=== PATIENT | male | born 1940 | race Caucasian/White ===

== ENCOUNTER 2017-03-15 01:48 | Emergency (ER) | payer OTHER, MEDICARE ==
[2017-03-15] MEDS ORDERED: Aspirin Low Dose CHEW TAB* 81 MG PO ONE (02:28)
[2017-03-15 02:45] LABS: ABS Basophils 0 10^3/ul (0-0.2); ABS Eosinophils 0.2 10^3/ul (0-0.6); ABS Lymphocytes 1.5 10^3/ul (1.0-4.8); ABS Monocytes 0.4 10^3/ul (0-0.8); ABS Neutrophils 2.1 10^3/ul (1.5-7.7); ABS Nucleated RBC 0.01 10^3/ul; Eosinophil % 3.8 % (0-6); Hematocrit 41 % (42-52); Hemoglobin 14.1 g/dl (14.0-18.0); Lymphocyte % 35.7 % (25-47); Mean Corpuscular HGB Conc 34 g/dl (31-36); Mean Corpuscular Hemoglobin 32 pg (27-31); Mean Corpuscular Volume 95 fL (80-94); Mean Platelet Volume 8 um3 (7.4-10.4); Nucleated Red Blood Cells % 0.2; Platelet Count 120 10^3/ul (150-450); Red Blood Count 4.37 10^6/ul (4.0-5.4); Red Cell Distribution Width 13 % (10.5-15); White Blood Count 4.3 10^3/ul (3.5-10.8)
[2017-03-15 02:56] LABS: EGFR Non-African American 72.5 (>60)
[2017-03-15 02:58] LABS: INR 0.86 (0.77-1.02)
--- NOTE | 2017-03-15 07:58 | RAD ---
HISTORY: Chest pain COMPARISONS: March 22, 2015 VIEWS: 1: frontal portable view of the chest at 2:41 AM. The left costophrenic angle is partially cut off. FINDINGS: LINES AND TUBES: A left-sided pacemaker is noted. CARDIOMEDIASTINAL SILHOUETTE: The cardiomediastinal silhouette is normal for portable technique. PLEURA: The costophrenic angles are sharp. No pleural abnormalities are noted. LUNG PARENCHYMA: There is minimal linear opacification of left lung base. ABDOMEN: The upper abdomen is clear. There is no subphrenic gas. BONES AND SOFT TISSUES: The patient is status post median sternotomy. IMPRESSION: MINIMAL LINEAR ATELECTASIS OF THE LEFT LUNG BASE.
[2017-03-15 09:35] VITALS: BP 154/77
--- NOTE | 2017-03-15 12:02 | PN ---
PROGRESS NOTE: DATE OF VISIT: 03/15/17 CHIEF COMPLAINT: Chest pain. HISTORY OF PRESENT ILLNESS: I was asked to evaluate Mr. Chao, who is a 76- year- old male, with history of coronary artery disease, for chest pain. I was asked by the ED physician to admit the patient for overnight observation with a stress test. When I approached the patient and started talking about his history , he said that he is not willing to stay in this hospital as all of his cardiac care is at [facility] and that is where he wishes to go. At this point, I suggested for him to reconsider it as he would have to sign against medical advice, if he wanted to leave the hospital, due to his cardiac risks. The patient was presented with against medical advice form and he signed it. The patient wishes to continue his care with his services engineer at [facility] in [place], [place]. TIME SPENT: Overall, approximately 15 minutes was spent on the patient's visit. Please note that the patient was not examined and full history and physical was not taken. [id number]/[facility] #: [id number]
--- NOTE | 2017-03-16 22:16 | ED ---
Fracisco Guzmán Gabriel, scribmoreno for Panchito Dunham MD on 03/15/17 at 0237 . HPI Chest Pain - HPI Summary HPI Summary: This patient is a 76 year old M presenting to [facility] accompanied by his with a chief complaint of CP since [employer]. He had chest pain while he was going to the bathroom so he took NTG pills which resolved the chest pain. He takes baby ASA every day and took it at 2400 tonight. During the episode of CP patient reports a Hr of 95 and Bp 127. The patient rates the pain 5/10 in severity and radiating under his left arm. Symptoms aggravated by exertion. Patient denies nausea, diaphoresis, and SOB. He reports a similar intermittent pain all week long. 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 He had a stress test today and is having more CP. They stopped the stress test due his CP. 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 - History of Current Complaint Chief Complaint: EDChestPainROMI Time Seen by Provider: 03/15/17 02:02 Hx Obtained From: Patient Onset/Duration: Started Weeks Ago - 1, Still Present Timing: Constant Initial Severity: Moderate Current Severity: None Pain Intensity: 5 Pain Scale Used: 0-10 Numeric Chest Pain Radiates: No Associated Signs and Symptoms: Positive: Negative - SOB. Negative: Diaphoresis , Nausea - Additional Pertinent History Primary Care Physician: [id number] - Allergy/Home Medications Allergies/Adverse Reactions: Allergies Allergy/AdvReac Type Severity Reaction Status Date / Time Cephalexin [From Keflex] Allergy Mild See Comment Verified 03/15/17 01:56 Ibuprofen Allergy Swelling Verified 03/15/17 01:56 PMH/Surg Hx/FS Hx/Imm Hx Endocrine/Hematology History: Denies: Hx Diabetes, Hx Systemic Lupus Erythematosus, Hx Thyroid Disease Cardiovascular History: Reports: Hx Coronary Artery Disease, Hx Hypertension, Hx Pacemaker/ICD, Other Cardiovascular Problems/Disorders - CABG Denies: Hx Congestive Heart Failure Respiratory History: Denies: Hx Asthma, Hx Chronic Obstructive Pulmonary Disease (COPD) GI History: Denies: Hx Ulcer History: Reports: Hx Benign Prostatic Hyperplasia Denies: Hx Dialysis, Hx Renal Disease Musculoskeletal History: Denies: Hx Rheumatoid Arthritis Sensory History: Reports: Hx Cataracts Opthamlomology History: Reports: Hx Cataracts Neurological History: Reports: Hx Transient Ischemic Attacks (TIA) - Cancer History Cancer Type, Location and Year: Lymphoma Hx Chemotherapy: No - Surgical History Surgery Procedure, Year, and Place: CABG 2008 - Immunization History Date of Tetanus Vaccine: utd Date of Influenza Vaccine: 11/21/15 Infectious Disease History: No Infectious Disease History: Denies: Hx Hepatitis, Hx Human Immunodeficiency Virus (HIV), Hx of Known/ Suspected MRSA, History Other Infectious Disease, Traveled Outside the [place] in Last 30 Days - Family History Known Family History: Positive: Cardiac Disease - from father side Negative: Diabetes - Social History Lives: With Family Alcohol Use: Daily Alcohol Amount: X2 Substance Use Type: Reports: None Smoking Status (MU): Never Smoked Tobacco Review of Systems Negative: Skin Diaphoresis Positive: Chest Pain Negative: Shortness Of Breath Negative: Nausea All Other Systems Reviewed And Are Negative: Yes Physical Exam - Summary Physical Exam Summary: VITAL SIGNS: Reviewed. GENERAL: Patient is a well-developed and nourished male who is lying comfortable in the stretcher. Patient is not in any acute respiratory distress. HEAD AND FACE: No signs of trauma. No ecchymosis, hematomas or skull depressions. No sinus tenderness. EYES: PERRLA, EOMI x 2, No injected conjunctiva, no nystagmus. EARS: Hearing grossly intact. Ear canals and tympanic membranes are within normal limits. MOUTH: Oropharynx within normal limits. NECK: Supple, trachea is midline, no adenopathy, no JVD, no carotid bruit, no c- spine tenderness, neck with full ROM. CHEST: Symmetric, no tenderness at palpation LUNGS: Clear to auscultation bilaterally. No wheezing or crackles. CVS: Regular rate and rhythm, S1 and S2 present, no murmurs or gallops appreciated. ABDOMEN: Soft, non-tender. No signs of distention. No rebound no guarding, and no masses palpated. Bowel sounds are normal. EXTREMITIES: FROM in all major joints, no edema, no cyanosis or clubbing. NEURO: Alert and oriented x 3. No acute neurological deficits. Speech is normal and follows commands. SKIN: Dry and warm Triage Information Reviewed: Yes Vital Signs On Initial Exam: Initial Vitals Temp Pulse Resp BP Pulse Ox 97.1 F 81 23 146/74 98 03/15/17 01:54 03/15/17 01:54 03/15/17 01:54 03/15/17 01:54 03/15/17 01:54 Vital Signs Reviewed: Yes Diagnostics - Vital Signs Vital Signs Temp Pulse Resp BP Pulse Ox 03/15/17 01:54 97.1 F 81 23 146/74 98 - Laboratory Result Diagrams: 03/15/17 02:07 03/15/17 02:07 Lab Statement: Any lab studies that have been ordered have been reviewed, and results considered in the medical decision making process. - Radiology CXR Radiology Interpretation Completed By: ED Physician - no acute process - EKG 0153 Cardiac Rate: Other Rate EKG Rhythm: Sinus Rhythm - paced at 76 BPM EKG Interpretation: PACED Chest Pain Course/Dx - Course Assessment/Plan: This patient is a 76 year old M presenting to [facility] accompanied by his with a chief complaint of CP since . He had chest pain while he was going to the bathroom so he took NTG pills which resolved the chest pain. He takes baby ASA every day and took it at 2400 tonight. During the episode of CP patient reports a Hr of 95 and Bp 127. The patient rates the pain 5/10 in severity and radiating under his left arm. Symptoms aggravated by exertion. Patient denies nausea, diaphoresis, and SOB. He reports a similar intermittent pain all week long. 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 He had a stress test today and is having more CP. They stopped the stress test due his CP. 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 An EKG reveals paced. CXR reveals no acute process. Test results with no significant abnormalities. In the ED course the patient was given ASA. We discussed patient care with Dr. Buck and he agreed to admit the patient. Patient will be admitted. The patient is agreeable with this plan. - Diagnoses Provider Diagnoses: Chest pain - Provider Notifications Discussed Care Of Patient With: Chu Buck Time Discussed With Above Provider: 03:40 Instructed by Provider To: Admit As Inpatient Discharge - Discharge Plan Condition: Fair Disposition: ADMITTED TO [facility] Referrals: Norman WHITE,Hany Kinney [Primary Care Provider] - The documentation as recorded by the Fracisco torrez Gabriel accurately reflects the service I personally performed and the decisions made by me, Panchito Dunham MD.
== END 2017-03-15 09:34 | disposition left against medical advice (07) ==
LOC: ED 01:48
DX: R07.9 Chest pain, unspecified (principal); Z95.1 Presence of aortocoronary bypass graft; Z95.0 Presence of cardiac pacemaker; Z79.82 Long term (current) use of aspirin; Z85.72 Personal history of non-Hodgkin lymphomas; Z92.21 Personal history of antineoplastic chemotherapy; Z88.6 Allergy status to analgesic agent; Z88.3 Allergy status to other anti-infective agents
CPT/HCPCS: 36415; 71045; 80053; 83880; 84484; 85025; 85610; 85730; 93005; 99283; A9270-GY

== ENCOUNTER 2017-10-07 02:24 | Observation (INO) | payer OTHER, MEDICARE ==
--- NOTE | 2017-10-07 02:58 | ED ---
Abdominal Pain/Male - HPI Summary HPI Summary: The patient is a 77 y/o male with a PMHx of diverticulitis c/o constant RLQ pain for the last 2 months and worsening 3-5 days ago. The pain is described as a bubble which is aggravated by sneezing, coughing or sitting. 5 days ago, he took Abx previously prescribed for diverticulitis by his PCP to no relief. He notes diarrhea 5 days ago and constipation accompanied by pencil thin stools 1.5 weeks ago. He denies edema, chills, tremors and change in appetite. He is concerned about CA and appendicitis. Denies abdominal SHx but notes PMHx of lymphoma, CAD and HTN. Takes Metoprolol. This is scribe Mylene Martinez documenting for attending Dr. Toby MD. - History of Current Complaint Chief Complaint: EDAbdPain Stated Complaint: ABD PAIN Time Seen by Provider: 10/07/17 02:31 Hx Obtained From: Patient Onset/Duration: Lasting Weeks - Started 2 months ago, Still Present, Worse Since - 3-5 days ago Timing: Constant, Lasting Weeks - Since 2 months ago Severity Currently: Moderate Pain Intensity: 5 Pain Scale Used: 0-10 Numeric Location: Discrete At: RLQ Radiates: Yes Radiates to: LLQ - Tonight Aggravating Factor(s): Movement, Other: - Coughing and sitting Alleviating Factor(s): Nothing Associated Signs And Symptoms: Positive: Constipation, Diarrhea, Other - Negative:edema, chills, tremors. Negative: Decreased Appetite - Allergies/Home Medications Allergies/Adverse Reactions: Allergies Allergy/AdvReac Type Severity Reaction Status Date / Time MS Cephalexin [From Keflex] Allergy Mild See Comment Verified 10/07/17 03:31 MS Ibuprofen [Ibuprofen] Allergy Swelling Verified 10/07/17 03:31 PMH/Surg Hx/FS Hx/Imm Hx Previously Healthy: No Endocrine/Hematology History: Denies: Hx Diabetes, Hx Systemic Lupus Erythematosus, Hx Thyroid Disease Cardiovascular History: Reports: Hx Coronary Artery Disease, Hx Hypertension, Hx Pacemaker/ICD, Other Cardiovascular Problems/Disorders - CABG Denies: Hx Congestive Heart Failure Respiratory History: Denies: Hx Asthma, Hx Chronic Obstructive Pulmonary Disease (COPD) GI History: Denies: Hx Ulcer History: Reports: Hx Benign Prostatic Hyperplasia Denies: Hx Dialysis, Hx Renal Disease Musculoskeletal History: Denies: Hx Rheumatoid Arthritis Sensory History: Reports: Hx Cataracts Opthamlomology History: Reports: Hx Cataracts Neurological History: Reports: Hx Transient Ischemic Attacks (TIA) - Cancer History Cancer Type, Location and Year: Lymphoma Hx Chemotherapy: No - Surgical History Surgery Procedure, Year, and Place: CABG 2008 - Immunization History Date of Tetanus Vaccine: utd Date of Influenza Vaccine: 11/21/15 Infectious Disease History: No Infectious Disease History: Denies: Hx Hepatitis, Hx Human Immunodeficiency Virus (HIV), Hx of Known/ Suspected MRSA, History Other Infectious Disease, Traveled Outside the US in Last 30 Days - Family History Known Family History: Positive: Cardiac Disease - from father side Negative: Diabetes - Social History Occupation: Retired Lives: With Family Alcohol Use: Daily Alcohol Amount: X2 Substance Use Type: Reports: None Smoking Status (MU): Never Smoked Tobacco Review of Systems Negative: Fever, Chills, Other - neg: tremors Positive: Abdominal Pain - RLQ, Diarrhea, Other - Positive: Constipation; Negative: edema, and change in appetite All Other Systems Reviewed And Are Negative: Yes Physical Exam - Summary Physical Exam Summary: Appearance: Well-appearing, Well-nourished, lying in bed comfortably Skin: Warm, dry, no obvious rash Eyes: sclera anicteric, no conjunctival pallor ENT: mucous membranes moist, pharynx appears normal Neck: Supple, nontender Respiratory: Clear to auscultation, no signs of respiratory distress Cardiovascular: Normal S1, S2. No murmurs. Normal distal pulses in tibial and radial bilaterally. Abdomen: Local RLQ tenderness, mild guarding Musculoskeletal: Normal, Strength/ROM Intact Neurological: A&Ox3, awake and alert, mentation is normal, speech is fluent and appropriate Psychiatric: affect is normal, does not appear anxious or depressed Triage Information Reviewed: Yes Vital Signs On Initial Exam: Initial Vitals Temp Pulse Resp BP Pulse Ox 98.5 F 72 20 131/59 94 10/07/17 02:36 10/07/17 02:36 10/07/17 02:36 10/07/17 02:36 10/07/17 02:36 Vital Signs Reviewed: Yes Diagnostics - Vital Signs Vital Signs Temp Pulse Resp BP Pulse Ox 10/07/17 02:36 98.5 F 72 20 131/59 94 - Laboratory Result Diagrams: 10/07/17 03:12 10/07/17 03:12 Lab Statement: Any lab studies that have been ordered have been reviewed, and results considered in the medical decision making process. Discharge - Discharge Plan Referrals: Norman WHITE,Hany Kinney [Primary Care Provider] -
[2017-10-07] MEDS ORDERED: NS 0.9% 1000 ML* 1,000 ML IV ONE (03:00)
[2017-10-07 03:18] LABS: ABS Basophils 0 10^3/ul (0-0.2); ABS Eosinophils 0.1 10^3/ul (0-0.6); ABS Monocytes 0.7 10^3/ul (0-0.8); ABS Neutrophils 5.6 10^3/ul (1.5-7.7); ABS Nucleated RBC 0 10^3/ul; Eosinophil % 1.3 % (0-6); Hematocrit 40 % (42-52); Hemoglobin 13.6 g/dl (14.0-18.0); Lymphocyte % 13.7 % (25-47); Mean Corpuscular HGB Conc 34 g/dl (31-36); Mean Corpuscular Hemoglobin 33 pg (27-31); Mean Corpuscular Volume 95 fL (80-94); Mean Platelet Volume 8.6 um3 (7.4-10.4); Nucleated Red Blood Cells % 0; Platelet Count 104 10^3/ul (150-450); Red Blood Count 4.18 10^6/ul (4.00-5.40); Red Cell Distribution Width 13 % (10.5-15); White Blood Count 7.4 10^3/ul (3.5-10.8)
[2017-10-07 03:35] LABS: EGFR Non-African American 90.9 (>60)
[2017-10-07 05:13] LABS: Urine Appearance Clear; Urine Blood Negative (Negative); Urine Color Straw; Urine Ketones Negative (Negative); Urine Protein Negative (Negative); Urine Red Blood Cell Absent (Absent); Urine Specific Gravity 1.008 (1.010-1.030); Urine Urobilinogen Negative (Negative); Urine White Blood Cell 1+(6-10/hpf) (Absent)
[2017-10-07] MEDS ORDERED: Iohexol 300* (CONTRAST) 10 ML SDV IV ONE (05:47)
[2017-10-07] MEDS ORDERED: Piperacillin/Tazobac ADVAN(*) 3.375 GM in NS 0.9% 100 ML* 100 ML IVPB ONE ×2 (07:04→10:26)
[2017-10-07] MEDS ORDERED: NS 0.9% 1000 ML* 2,000 ML IV ONE (07:06)
--- NOTE | 2017-10-07 07:37 | ED ---
Progress - EKG/XRAY/CT CT: 1. Cholelithiasis. 2. CT findings of uncomplicated acute appendicitis. + Re-Evaluation - Re-Evaluation First Eval Re-Evaluation Time: 07:38 Change: Unchanged Comment: Informing pt of dx of appendicitis, and need for surgery. Course/Dx - Diagnoses Provider Diagnoses: Appendicitis - Provider Notifications Discussed Care Of Patient With: Owen Reddy Time Discussed With Above Provider: 07:41 Instructed by Provider To: Other - Discussing pt's appendicitis, accepts admission, will see in ED. Discharge - Sign-Out/Discharge Documenting (check all that apply): Patient Departure - admit, Receiving Sign- Out Receiving patient FROM: Jones Luis - CT A/P - Discharge Plan Condition: Fair Disposition: ADMITTED TO [facility] Referrals: Norman WHITE,Hany Kinney [Primary Care Provider] - - Billing Disposition and Condition Condition: FAIR Disposition: Admitted to [facility]
--- NOTE | 2017-10-07 07:40 | RAD ---
INDICATION: Lower abdominal pain COMPARISON: None TECHNIQUE: Axial source images were obtained from the hemidiaphragms to the symphysis pubis following administration of oral and intravenous contrast. 121 mL Omnipaque 300 was utilized. Coronal and sagittal reconstructed images were acquired. Lung bases: There is mild bibasilar atelectasis. There are sternotomy.. Liver: The liver is normal in size. There are no masses. There is no ductal dilatation. Gallbladder: There are calcified gallstones. There is no thickening of the gallbladder wall or pericholecystic fluid. Spleen: The spleen is normal in size. There are no masses. Pancreas: There is no focal pancreatic mass or ductal dilatation. Adrenal glands: There is no evidence of adrenal mass. Kidneys: The kidneys are normal in size and position. There are prompt nephrograms and there is prompt excretion bilaterally. There are no renal parenchymal masses. There is no evidence of nephrolithiasis. Adenopathy: There is no evidence of adenopathy by size criteria. Fluid collections: There are no free or localized fluid collections. Vessels:There are atherosclerotic changes involving the aorta and iliac vessels. There is no focal aneurysm. The iliac vessels are very tortuous. The IVC appears normal. GI tract: The upper GI tract is unremarkable. The terminal ileum is normal. There is mild thickening of cecal tip. The appendix is dilated. There are several appendicoliths. There is periappendiceal inflammatory change. There are scattered diverticula of the sigmoid and descending colon. Pelvic organs: Enlarged prostate with calcifications Bladder: Trabeculation of bladder wall. Abdominal and pelvic soft tissues: The extraperitoneal abdominal and pelvic soft tissues appear normal.. Osseous structures: There are no acute osseous findings. There is spondylitic change of the lumbar spine Other: None IMPRESSION: 1. Cholelithiasis. 2. CT findings of uncomplicated acute appendicitis. 3. Moderate diverticula. No CT evidence of acute diverticulitis. 4. Prostatic hypertrophy
[2017-10-07] MEDS ORDERED: Famotidine TAB* 20 MG PO PRN (09:39)
[2017-10-07] MEDS ORDERED: Nitroglycerin TAB 0.4 MG* 0.4 MG TAB SL PRN (09:39)
[2017-10-07] MEDS ORDERED: Zosyn per Pharmacy* NOTE FOLLOW UP SCH (11:00)
[2017-10-07] MEDS: ZOSYN 3.375 GM Q8H per EXTENDED INFUSION IVPB SCH ×4 (11:33→19:56)
[2017-10-07] MEDS: Heparin VIAL(*) 5000 UNITS/ML VIAL (FIVE THOUSAND) SUBCUT SCH ×2 (13:12→21:45)
[2017-10-07] MEDS: NS 0.9% 1000 ML* 1,000 ML IV SCH ×2 (13:18→23:53)
--- NOTE | 2017-10-07 14:45 | CONS ---
CC: Dr. Owen Reddy; Dr. Hany Austin at [place] CONSULTATION REPORT: DATE OF CONSULT: CHIEF COMPLAINT: Abdominal pain. HISTORY OF PRESENT ILLNESS: Mr. Chao is a 77-year-old male who has had lower abdominal and right lower quadrant abdominal pain on and off for he thinks about 2 months or so. At one point, his prima ry thought that maybe it was diverticulitis, put him on antibiotics, it did resolve completely, and h e subsequently had a recurrence of the pain. He has been having the pain for about 3 or 4 days now a nd he is getting ready to leave for a 2-week vacation in [place] and wanted to have it checked out bef ore he left on vacation. He has had no fever, no chills, no nausea, no vomiting. He has otherwise b een feeling like himself. PAST MEDICAL HISTORY: Significant for cardiac disease and peripheral vascular disease as well as kashif betes. He has a pacemaker . He has had coronary surgery and stenting. He also has a history of Non- Hodgkin's lymphoma and was treated with chemotherapy in the past. He also has a history of having gonzalez d a TURP for difficulty urinating and a blood clot retention. PHYSICAL EXAMINATION: On examination today, he is a well-developed, well-nourished male. He does no t appear acutely ill. Skin is warm and well perfused. He is not diaphoretic. Vital signs are noted . He is afebrile with normal vital signs. Neck is supple without any adenopathy. Breathing is easy and unlabored. Abdomen is soft, mildly tender in the right lower quadrant. There is no rebound ten derness. There is no guarding. There is no Rovsing sign. Maybe there is a trace of percussion tende rness. Bowel sounds are normal. There are no palpable masses or hernias. DIAGNOSTIC STUDIES/LAB DATA: Laboratory studies reveal normal white blood count with a trace left sh ift. Electrolytes are essentially normal. Urinalysis is essentially normal. CT scan shows a dilated appendix with mild periappendiceal inflammation. There is no evidence of phl egmon or abscess. I discussed this with him at length and I think he has what seems like chronic recurrent appendicitis , now with a mild flare-up. I think he will ultimately need to have an appendectomy. However, given his cardiac history, I think he needs cardiac evaluation and I have called the hospitalist service t o evaluate him from a cardiac perspective. If his cardiac status is good, then I think laparoscopic appendectomy in the next few days is warrant ed. Hopefully, after he has been off the Plavix for a few days. If the cardiac status is not satisfa ctory, then I think more prolonged course of antibiotics is likely to resolve his appendicitis and he can then have the leisure of having that taken care of once his cardiac status has been optimized. I will continue to follow him along with you and at such time he is ready, we can perform appendectom y. [id number]/[facility] #: [id number]
[2017-10-07] MEDS ORDERED: Atorvastatin* 40 MG TAB PO SCH (18:00)
[2017-10-07] MEDS: Metoprolol Succinate XL TAB* 25 MG PO SCH (20:19)
--- NOTE | 2017-10-07 23:35 | HP ---
CC: Dr. Austin; Dr. Estrada Agarwal * HISTORY AND PHYSICAL: DATE OF ADMISSION: 10/07/17 PRIMARY CARE PROVIDER: Dr. Austin. DIRECTOR CARDIOLOGY: Dr. Estrada Agarwal. CHIEF COMPLAINT: Abdominal pain. HISTORY OF PRESENT ILLNESS: Mr. Chao is a 77-year-old male, who over the last couple of months, has been having right lower quadrant abdominal pain. The patient states that either 2 to 3 months ago, he had an episode of significant right lower quadrant abdominal pain that he felt could have represented diverticulitis. He contacted his primary provider, who then prescribed Augmentin. He states within a couple of days, his pain had essentially resolved. He states that over the next couple of months, he would have an occasional discomfort in his abdomen; however, nothing like that initial episode. For approximately the last 2 weeks, the patient has been having off and on diarrhea and right lower quadrant abdominal pain. There has been no blood in the diarrhea. At times, he has been constipated. He denies any fevers or chills. He denies any change in appetite. He does think that perhaps some of his diarrhea may have been related to the foods that he was eating. PAST MEDICAL HISTORY: 1. History of lymphoma, status post R-CHOP x4 cycles. 2. MGUS. 3. Permanent pacemaker for sick sinus syndrome. 4. Coronary artery disease, status post CABG in either 2007 or 2008. 5. Right innominate artery stenting. 6. Left carotid artery stenosis. 7. Hyperlipidemia. PAST SURGICAL HISTORY: 1. Port removal. 2. Port insertion. 3. TURP. 4. Permanent pacemaker. 5. CABG. MEDICATIONS: 1. Crestor 20 mg p.o. q.h.s. 2. Nitroglycerin 0.4 mg SL q.5 minutes p.r.n. chest pain. 3. Metoprolol XL 25 mg p.o. b.i.d. 4. Glucosamine 2 caps p.o. daily. 5. Famotidine 20 mg p.o. daily p.r.n. indigestion. 6. Zetia 10 mg p.o. daily. 7. Plavix 75 mg p.o. daily. 8. Aspirin 81 mg p.o. daily. ALLERGIES: IBUPROFEN and KEFLEX. FAMILY HISTORY: Mom at the age of 99. Dad of COPD. SOCIAL HISTORY: The patient is a former smoker of 2 packs per day for approximately 20 years, he quit in 1994. He drinks 1 to 2 glasses of wine per day. 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 He is . He has 2 children. He indicates that his , Sierra, is his healthcare proxy. REVIEW OF SYSTEMS: A complete 11 systems review of systems is obtained. Pertinent positives and negatives are as per HPI and in addition, the patient does state that after eating a large meal and then what he describes as exercising, he will get chest pain. He states that nitroglycerin does relieve that discomfort. PHYSICAL EXAMINATION GENERAL: The patient is a well-developed elderly male, who appears younger than his stated age, sitting on the edge of the bed, in no acute distress. VITAL SIGNS: Blood pressure 132/63, pulse 70, respirations 20, temp 98.3, O2 sat 98% on room air. HEENT: Pupils are equal and round. Extraocular muscles are intact. Oropharynx is clear. Oral mucosa is moist. There is no submandibular, cervical , or supraclavicular adenopathy. Thyroid is not enlarged. No thyroid nodules noted. PULMONARY: Lungs are clear to auscultation bilaterally. CARDIAC: Normal S1, S2. Regular rate and rhythm. I do not appreciate any murmurs. There is no lower extremity edema. ABDOMEN: Bowel sounds present. Abdomen is soft, nontender, nondistended. MUSCULOSKELETAL: There is no cyanosis or clubbing of the digits. There is full active range of motion of all 4 extremities. SKIN: Warm and dry. There are no rashes. NEUROLOGIC: Cranial nerves II through XII are grossly intact. Sensation is intact to light touch throughout. Strength is 5/5 and symmetric in both upper and lower extremities bilaterally. PSYCH: The patient is alert and oriented x3. Affect appears appropriate. DIAGNOSTIC STUDIES/LAB DATA: WBC 7.4, hemoglobin 13.6, hematocrit 40, platelets 104. Sodium 137, potassium 4.1, chloride 104, CO2 26, BUN 17, creatinine 0.82, glucose 126, calcium 9.0. Bilirubin 1.3, AST 17, ALT 17, alk phos 52. Albumin 3.9. Urinalysis is negative for signs of infection. CT abdomen and pelvis, there is evidence of cholelithiasis and CT findings of uncomplicated acute appendicitis. There is moderate diverticula, no CT evidence of acute diverticulitis. Prostatic hypertrophy is also noted. ASSESSMENT AND PLAN: Mr. Chao is a 77-year-old male, who has a known history of coronary artery disease, peripheral vascular disease, hyperlipidemia , and past history of lymphoma, who presents to the emergency room with complaints of abdominal pain off and on over the last couple of months, who is found to have acute appendicitis. 1. Acute appendicitis. Given the patient's complicated medical history, Dr. Reddy has asked for the hospitalist to admit the patient. The patient follows with Dr. Agarwal of Cardiology. In March of this year, he underwent a transthoracic echocardiogram that revealed a normal EF and no significant wall motion abnormalities. The patient also had a stress echocardiogram performed at that time. The patient did not reach maximal target heart rate and therefore the stress test was felt to be inconclusive for ischemia based on EKG and echocardiographic features. The patient did, however, have chest discomfort at maximal exercise making this a positive stress test. The patient states that he has not had any further evaluation for this since that time. Given the abnormal stress test, I do feel it would be prudent for the patient to undergo a chemical nuclear stress test prior to proceeding with general anesthesia. The patient at this point does not wish to have a stress test performed until he is feeling improved from the abdominal pain standpoint. At this point, the patient is in agreement with being admitted for IV antibiotics overnight and likely being discharged with oral antibiotics the following day to then have an outpatient stress test and surgery electively. This plan has been discussed with Dr. Reddy, who agrees tentatively with the plan. If the patient shows any deterioration overnight, this plan will need to be reconsidered. Additionally, the patient is on Plavix at baseline and we will like input from the patient's tank assembler on whether or not he could come off the Plavix for surgery. The patient is nontoxic appearing. He does not have a fever or an elevated white blood cell count. A CRP will be added to the labs obtained in the emergency room. 2. Coronary artery disease. The patient is asymptomatic at this time. He will continue on statin, metoprolol XL, Zetia, Plavix, and aspirin. 3. As above, the patient has an abnormal stress echocardiogram and this will need to be worked up as an outpatient. 4. Gastroesophageal reflux disease. Continue famotidine p.r.n. 5. DVT prophylaxis. According to the Adult Thrombosis Prophylaxis Risk Factor Assessment Guide, the patient has a total risk factor score of 5 making him high risk. He will be placed on heparin 5000 units subcutaneous q.8 hours. 6. Code status is full. TIME SPENT: 65 minutes were spent admitting this patient of which greater than half the time [id number] with the patient reviewing his history, performing the physical exam, and reviewing outside records. [id number]/[facility] #: [id number] MTDD
[2017-10-08] MEDS: ZOSYN 3.375 GM Q8H per EXTENDED INFUSION IVPB SCH ×2 (03:35)
[2017-10-08] MEDS: Heparin VIAL(*) 5000 UNITS/ML VIAL (FIVE THOUSAND) SUBCUT SCH (05:50)
[2017-10-08 07:40] VITALS: BP 130/63
[2017-10-08] MEDS: Metoprolol Succinate XL TAB* 25 MG PO SCH (08:24)
[2017-10-08] MEDS ORDERED: Aspirin EC TAB* 81 MG TAB.EC PO SCH (09:00)
[2017-10-08] MEDS ORDERED: Clopidogrel TAB* 75 MG PO SCH (09:00)
[2017-10-08] MEDS ORDERED: Ezetimibe TAB* 10 MG PO SCH (09:00)
--- NOTE | 2017-10-08 09:06 | PN ---
Progress Note - Progress Note Date of Service: 10/08/17 Note: HD#2 abd pain, appendicitis Afeb uo large, shekhar po's No N/V Pain 80% better Abd soft, non-dist, minimal RLQ pain, no rebound or guarding Impr Recurrent Appendicitis, responding to abx Should cont abx until cardiac eval, and off plavix Could opt for oral abx and outpt w/u.
--- NOTE | 2017-10-08 23:18 | DS ---
CC: Dr. Austin; Dr. Agarwal * DISCHARGE SUMMARY: DATE OF ADMISSION: 10/07/17 DATE OF DISCHARGE: 10/08/17 PRIMARY CARE PROVIDER: Dr. Austin. INTERNIST MEDICAL DOCTOR MD: Dr. Agarwal. PRINCIPAL DIAGNOSIS: Acute appendicitis. SECONDARY DIAGNOSES: 1. Coronary artery disease. 2. Peripheral vascular disease. 3. Hyperlipidemia. 4. History of lymphoma. DISCHARGE MEDICATIONS: 1. Crestor 20 mg p.o. q.h.s. 2. Nitroglycerin 0.4 mg SL q.5 minutes p.r.n. chest pain. 3. Metoprolol XL 25 mg p.o. b.i.d. 4. Glucosamine 2 caps p.o. daily. 5. Famotidine 20 mg p.o. daily p.r.n. GERD. 6. Zetia 10 mg p.o. daily. 7. Plavix 75 mg p.o. daily. 8. Aspirin 81 mg p.o. daily. 9. [employer] [place] 5/325 one tab p.o. q.4 hours p.r.n. pain, dispensed 24 tablets. 10. Augmentin 875 mg 1 tab p.o. b.i.d. x10 days. HOSPITAL COURSE: Mr. Choa is a 77-year-old male who had an episode of right lower quadrant abdominal pain approximately 2 to 3 months ago that resolved with treatment with Augmentin. Initially, he felt that perhaps it was diverticulitis. The patient had been having some off and on abdominal discomfort though nothing severe over the last couple of months; however around 09/24/17, he began to have more frequent abdominal pain and diarrhea that was nonbloody. Ultimately, the patient presented to the emergency room for evaluation on 10/07/17. The patient was identified to have acute appendicitis based on CT scan. The patient's cardiac care has predominantly been through the [facility]. The patient denies any chest pain with riding a bike or normal exertion; however, he does state that after eating a meal and he tries to exercise he will develop chest pain that he uses nitroglycerin to relieve. The patient had a stress echocardiogram in March 2017 for which I was able to obtain the results. At that time, it was felt to be nondiagnostic by EKG and echocardiographic criteria as the patient did not meet his target heart rate; however, it was felt to be a positive stress test due to the patient complaining of chest pain at maximal exertion. Because of this, it was felt that the patient should be evaluated by Cardiology prior to proceeding with surgery. The patient at this point is feeling markedly improved after IV antibiotics overnight. His pain is essentially 80% resolved. He previously appears to have treated appendicitis successfully with oral antibiotics. It was felt that the patient should likely undergo a chemical nuclear stress test prior to proceeding with General Surgery to have his appendix removed. At this point, the patient will be discharged home on Augmentin 875 mg p.o. twice daily for the next 10 days. The patient should get back in with his farmhand for evaluation of his cardiac risk for surgery. The patient's primary farmhand can determine if a chemical nuclear stress test would be warranted in this situation and if the patient can come off Plavix for surgery. Ideally, the patient will have his appendix removed on a semi-urgent basis though this is not emergent at this point as the patient appears to have quiet it down with antibiotics. The patient has been explained that when he is discharged from the hospital if he has any fevers, chills, severe abdominal pain, or rigid abdomen he should present to the emergency room. Additionally, I have provided a prescription for [employer] [place] to the patient and I have explained to him that if he were taking [employer] routinely that may indicate that the antibiotics alone is not treating his appendicitis and again that would be another reason to prompt evaluation in the emergency room. Again at this time, the patient is medically treating his acute appendicitis with antibiotics. The patient should be seen by his farmhand in the very near future to be risk stratified prior to surgery and to determine if a chemical nuclear stress test should be obtained prior to proceeding with surgery. The last question for the patient's primary farmhand is whether or not the patient can come off Plavix temporarily for surgery. PHYSICAL EXAMINATION: On the day of discharge, the patient is awake alert and oriented, sitting up on the edge of the bed in no acute distress. The patient has been afebrile through his entire hospitalization, his blood pressure is 130/ 63, pulse is 70, and his respiratory rate is 14. His cardiac exam reveals a normal S1, S2 with a regular rate and rhythm. There is a 2 to 3/6 systolic murmur present. His lungs are clear bilaterally. His abdomen is soft, nondistended. Minimally tender in the right lower quadrant. There is no lower extremity edema. At this point, it is felt the patient is stable for discharge home. FOLLOWUP CONCERNS: The patient is being discharged home today 10/08/17. ACTIVITY LEVEL: As tolerated. DIET: Heart healthy. CONDITION ON DISCHARGE: Stable. DISCHARGE FOLLOWUP: The patient should follow up with his primary care provider , Dr. Austin in the next 4 to [address] Agarwal also in the next 4 to 7 days for cardiac risk stratification. TIME SPENT: Thirty five minutes were spent discharging this patient of which greater than half was spent [id number] with the patient and his reviewing the discharge plan and instructions. [id number]/[facility] #: [id number] [facility] CENTERRaymundo
== END 2017-10-08 11:00 | disposition home or self-care (01) ==
LOC: ED 02:24 → MED 10:09 → INTOOBSV 10:09
PROVIDERS: ADMIT Hospitalist; ATTEND Hospitalist
DX: K35.80 Unspecified acute appendicitis (principal); I25.10 Atherosclerotic heart disease of native coronary artery without angina pectoris; R10.31 Right lower quadrant pain; Z87.19 Personal history of other diseases of the digestive system; K59.00 Constipation, unspecified; I73.9 Peripheral vascular disease, unspecified; E78.5 Hyperlipidemia, unspecified; Z85.72 Personal history of non-Hodgkin lymphomas; Z79.82 Long term (current) use of aspirin; Z95.0 Presence of cardiac pacemaker; Z95.5 Presence of coronary angioplasty implant and graft
CPT/HCPCS: 36415; 74177; 80053; 81003; 81015; 85025; 86140; 87086; 96374; 99284; A9270-GY; G0378; J1644; J2543; Q9967

== ENCOUNTER 2019-01-24 10:32 | Emergency (ER) | payer MEDICARE, OTHER ==
--- OUTSIDE RECORDS SUMMARY | 2019-01-24 10:42 | XMS REPORT | Summary of Care ---
:1940 Author Organization [facility] Address 1 [facility] [place] [address] Care Team Providers Name Role Phone Hany Austin Primary Care Provider Reason for Referral Diagnostic Testing (Routine) Status Reason Specialty Diagnoses / Referred By Referred To Procedures Contact Contact Pending Review Diagnoses Aortic valve stenosis, etiology of cardiac valve disease unspecified Estrada Agarwal MD Procedures ECHOCARDIOGRAM TTE 1 [facility] [place] [id number] Reason for Visit Reason Comments Aortic Stenosis Encounter Details Date Type Department Care Team Description 01/11/2019 Office Visit [facility] Estrada Agarwal MD Aortic valve stenosis, etiology of cardiac valve disease unspecified (Primary Dx); [address] 1 LOWE Nonrheumatic aortic valve stenosis; [place] [id number] [place] [id number] Ischemic cardiomyopathy; [phone] S/P CABG (coronary artery bypass graft); S/P coronary artery stent placement; Chronic stable angina (HCC); MGUS (monoclonal gammopathy of unknown significance) Allergies Active Allergy Reactions Severity Noted Date Comments Héctor Inhibitors Unknown Reaction 09/30/2016 Ibuprofen Other 02/26/2015 Pt states he had trouble with lips and cheek Keflex Hives 01/11/2008 Rash on chest at end of 10 day course. documented as of this encounter (statuses as of 01/11/2019) Medications Medication Sig Dispensed Refills Start Date End Date Status CENTRUM Oral Tab Take 1 Tab by 0 Active mouth EVERY MORNING. GLUCOSAMINE 500 MG Oral Take 2 Tabs by 0 Active Tab mouth EVERY MORNING. Blood Glucose 1. Brand:sabine one touch 100 Strip 5 01/15/2013 Active Monitoring Suppl (BLOOD 2. Dx:diabeties GLUCOSE TEST STRIPS 3. non-Insulin dependent STRP)Indications: Type 4. Test Blood Glucose 2 time(s) A DAY II or unspecified type diabetes mellitus without mention of complication, not stated as uncontrolled Blood Glucose 0 10/13/2014 Active Monitoring Suppl (ONETOUCH ULTRALINK) W/DEVICE Does not apply Kit Glucose Blood (ONE 1 Strip by In 50 Strip 5 03/01/2015 Active TOUCH TEST STRIPS) In Vitro route Vitro StripIndications: DAILY. One Touch Type 2 diabetes Ultra softtouch mellitus without complication (HCC) famotidine (PEPCID) 20 Take 20 mg by 0 Active MG Oral Tab mouth TWICE DAILY. Pt states he takes 20 mg daily PRN Aspirin 81 MG Oral Tab Take 81 mg by 0 Active mouth DAILY. Pt states he BID clopidogrel (PLAVIX) 75 Take 1 Tab by 90 Tab 3 06/15/2018 Active MG Oral Tab mouth EVERY MORNING. Icosapent Ethyl 1 g Take 2 Caps by 120 Cap 5 08/23/2018 Active Oral CapIndications: mouth TWICE Mixed hyperlipidemia DAILY. Additional information Patient taking differently: 2 Cap Oral DAILY, Reported on 01/11/2019 2:30 PM Rosuvastatin Calcium Take 1 Tab by 90 Tab 3 11/01/2018 Active (CRESTOR) 10 MG Oral mouth DAILY. Take Tab with 20 mg for daily total of 30 mg metoprolol succinate TAKE 1 TABLET BY 45 Tab 5 01/07/2019 Active (TOPROL XL) 50 MG Oral MOUTH EVERY TABLET SR 24 MORNING AND TAKE HRIndications: 1/2 TABLET BY Coronary artery MOUTH EVERY disease, angina EVENING presence unspecified, unspecified vessel or lesion type, unspecified whether [place] or transplanted heart metoprolol succinate Take 1 Tab by 45 Tab 5 01/05/2019 Active (TOPROL XL) 50 MG Oral mouth TABLET SR 24 DIRECTED. 1 tab HRIndications: in am 1/2 tab in Coronary artery pm disease, angina presence unspecified, unspecified vessel or lesion type, unspecified whether [place] or transplanted heart nitroglycerin Place 1 Tab under 25 Tab 3 04/09/2018 Discontinued (NITROSTAT) 0.4 MG tongue EVERY FIVE 019 (Duplicate Order) Sublingual SL Tab MINUTES NEEDED for chest pain (If chest pain continues after 3rd dose go to ED or call 911.). Rosuvastatin Calcium Take 1.5 Tabs by 90 Tab 3 11/01/2018 Discontinued (CRESTOR) 20 MG Oral mouth EVERY 019 (Duplicate Order) TabIndications: Mixed BEDTIME. 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 Flo Morrow/ Dr. Tr Soler Oncology Nurse Practitioner: LIZZETH Benjamin Surgeon: Dr. Tr Ball Diagnosis and Staging : Date of diagnosis: 11/24/2015 Primary site: Lymph nodes of left neck Clinical stage: Stage I Clinical Trial: N/A Surgery: Date: 11/24/2015 Left neck lymph node dissection and biopsy Chemotherapy/Biotherapy/Endocrine therapy: R-CHOP IV every 21 days: 03/15/2016 to 05/18/2016, completed 4 cycles Radiation Therapy: None given per patient request due to carotid disease. Diffuse Large B-Cell Lymphoma Survivorship Care Plan What is a survivor? An individual is considered a cancer survivor from the time of cancer diagnosis and through the balance of his or her life. Some definitions have also included family members, frien ds and care givers involved in a cancer patient s life. Post treatment surveillance recommendations: Medical history and physical exam: - Every 3-6 months for 5 years -- If normal results, then repeat every year or as needed Lab tests: - Every 3-6 months for 5 years -- If normal results, then repeat every year or as needed CT scan: - As needed Evidence suggests that active lifestyle and achieving and maintaining an ideal body weight (20-25 BMI) may lead to optimal cancer outcomes. Smoking cessation advice, counseling and pharmacotherapy may be offered to all smokers. Referrals to [place] Quit or [place] Quit if not done previously. Heavy or regular alcohol consumption increases the risk of developing cancers of the oral cavity (excluding the lips), pharynx (throat), larynx (voice box), esophagus, liver, breast, colon, and rectum. The risk of developing cancer increases with the amount of alcohol a person drinks Benign prostatic hyperplasia with lower urinary tract symptoms 01/14/2016 Pacemaker 12/10/2015 Overview: 11/13/15: Implantation of Dual-Chamber Permanent Pacemaker IMPLANTATION OF PACEMAKER AND LEADS: PACEMAKER GENERATOR IMPLANTED: [employer], model SL9773, serial number [id number]. ATRIAL LEAD: Model 1999, serial number [id number]. RIGHT VENTRICULAR LEAD: Model 2088C, serial number [id number]. 11/30/15: Arrhythmia Center Report This is an unscheduled vist at the request of Mr. Chao to have his device checked after the stress of undergoing a difficult urinary catheter placement 11/25/15. There was one episode of noise on both channels on 11/24/15. Mr. Chao underwent a ENT surgical procedure this day. There was one episode (6 beats) of non-sustained ventricular tachycardia on 11/29/15. There have been no episodes of atrial fibrillation. Heart rates range between 70- 80 bpm the majority of the time. Pacemaker function appears normal. These findings were reported to GURJIT Chen. NSVT (nonsustained ventricular tachycardia) 12/10/2015 Overview: 6 beat run, per arrhythmia center report dated 11/30/15 PAD (peripheral artery disease) 12/10/2015 Overview: 10/13/14: PCI to Left Subclavian Artery / Dr. Agarwal successful balloon dilatation of the left subclavian stenosis changing gradient from 60-mm gradient to Minus 20-mm gradient (the peripheral pressure exceeded central aortic pressure) . 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 Coronary artery disease 02/21/2008 Overview: 02/04/08: CABG x 3 / Dr. Lyn OPERATIVE PROCEDURE: Coronary artery bypass grafting times three, left internal mammary artery graft to the left anterior descending coronary artery, saphenous vein graft to obtuse marginal 1, and saphenous vein graft to posterior descending coronary artery, off-pump. 10/13/14: Left Heart Catheterization / PCI to subclavian artery stenosis Mixed hyperlipidemia 02/21/2008 Diabetic neuropathy 01/21/2008 documented as of this encounter (statuses as of 01/11/2019) Resolved Problems Problem Noted Date Resolved Date Chronic appendicitis 11/02/2017 08/23/2018 Overview: Added automatically from request for surgery [id number] Retention of urine 02/08/2016 08/29/2017 H/O epididymitis 02/08/2016 08/29/2017 Hematuria 02/04/2016 08/29/2017 Bladder stone 01/14/2016 08/29/2017 Atrioventricular block, complete 11/13/2015 08/29/2017 SOB (shortness of breath) 11/06/2015 08/29/2017 Dizziness 11/06/2015 08/29/2017 Chest pain, unspecified 03/26/2008 05/18/2012 Diverticulitis of colon 02/21/2008 08/29/2017 Overview: Outpt management in the past, last episode 2006 managed by ciprofloxacin and flagyll Calculus of kidney 09/06/2006 08/29/2017 documented as of this encounter (statuses as of 01/11/2019) Immunizations Name Administration Dates Next Due Influenza (IM) Preservative Free 01/19/2013, 01/25/2012, 12/21/2010, 12/14/2009, 02/08/2008 Influenza Vaccine High Dose 12/27/2017, 12/27/2016, 02/18/2015, 12/10/2013 Influenza Vaccine Split 11/14/2015 Influenza Vaccine Whole 01/22/2009 PNEUMOCOCCAL POLYSACCHARIDE VACCINE 07/19/2012 Pneumococcal Conjugate(13 Valent) 02/26/2015 ZOSTER (ZOSTAVAX) VACCINE 05/08/2010 documented as of this encounter Social History Tobacco Use Types Packs/Day Years Used Date Former Smoker Cigarettes 2 20 Quit: 03/19/1994 Smokeless Tobacco: Never Used Quit: 03/19/1994 Alcohol Use Drinks/Week oz/Week Comments Yes 14 Glasses of wine 14.0 Sex Assigned at Date Recorded Not on file Job Start Date Occupation Industry Not on file Not on file Not on file Travel History Travel Start Travel End No recent travel history available. documented as of this encounter Last Filed Vital Signs Vital Sign Reading Time Taken Comments Blood Pressure 134/82 01/11/2019 2:30 PM EDT Pulse 70 01/11/2019 2:30 PM EDT Temperature - - Respiratory Rate - - Oxygen Saturation 94% 01/11/2019 2:30 PM EDT Inhaled Oxygen Concentration - - Weight 93.9 kg (207 lb) 01/11/2019 2:30 PM EDT Height 180.3 cm (5' 11") 01/11/2019 2:30 PM EDT Body Mass Index 28.87 01/11/2019 2:30 PM EDT documented in this encounter Patient Instructions Patient InstructionsEstrada Agarwal MD - 01/11/2019 2:00 PM EDT1) Can proceed with TAVR procedure 2) NT-Pro-NBP 3) SPEP documented in this encounter Progress Notes Estrada Agarwal MD - 01/11/2019 2:00 PM EDT PATIENT: Hung Chao : 1940 DATE OF SERVICE: 01/11/2019 SUBJECTIVE: Hung Chao is a 78-y.o. male with severe aortic stenosis and known coronary artery disease who comes to discuss the option of the TAVR along with routine follow up about CAD,PAOD, & Aortic stenosis . He is mildly symptomatic and reports occasional angina on exertion as well as shortness of breath on exertion [[place] [employer] class II] Patient has: 1) moderate Aortic stenosis (Moderate to severe aortic stenosis (AV area 1.1 cm2, MPG 19 mmHg) )CAD s/p CABG 2) S/p left subclavian angioplasty & innominate stenting. 3) left carotid stenosis 4) PPM for SSS & Bifascicular clock 5) CAD s/p CABG currently asymptomatic 6) PVD s/p right innominate stenting & subclavian angioplasty 7) Severe hyperlipidemia 8 ) Lower extremity PAOD (absent DP bilateral) Non cardiac issues are: Acute urinary retention resulting in indwelling quintero catheter & complicated UTI He denies CP, Dyspnea palpitations He was planned for left carotid stenting and later the team at [facility] ([facility]) Suggested Left CEA recently treated for low grade Lymphoma (finished chemotherapy) Past Medical History: Diagnosis Date Allergic rhinitis Arthritis Atrioventricular block, 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, model [id number], serial number [id number]. ATRIAL LEAD: Model 1999, serial number [id number]. RIGHT VENTRICULAR LEAD: Model 2088C, serial number [id number]. 11/30/15: Arrhythmia Center Report This is an unscheduled vist at the request of Mr. Chao to have his device Family History Problem Relation Age of Onset Dementia Mother Heart Father chf Cancer Sister squamous cell skin cancer Cancer Sister squamous cell skin cancer Heart Maternal Grandfather Current Outpatient Medications Medication Sig Aspirin 81 MG Oral Tab Take 81 mg by mouth DAILY. Pt states he BID Blood Glucose Monitoring Suppl (BLOOD GLUCOSE TEST STRIPS STRP) 1. Brand: ulta one touch 2. Dx:diabeties 3. non-Insulin dependent 4. Test Blood Glucose 2 time(s) A DAY Blood Glucose Monitoring Suppl (ONETOUCH ULTRALINK) W/DEVICE Does not apply Kit CENTRUM Oral Tab Take 1 Tab by mouth EVERY MORNING. clopidogrel (PLAVIX) 75 MG Oral Tab Take 1 Tab by mouth EVERY MORNING. famotidine (PEPCID) 20 MG Oral Tab Take 20 mg by mouth TWICE DAILY. Pt states he takes 20 mg daily PRN GLUCOSAMINE 500 MG Oral Tab Take 2 Tabs by mouth EVERY MORNING. Glucose Blood (ONE TOUCH TEST STRIPS) In Vitro Strip 1 Strip by In Vitro route DAILY. One Touch Ultra softtouch Icosapent Ethyl 1 g Oral Cap Take 2 Caps by mouth TWICE DAILY. (Patient taking differently: Take 2 Caps by mouth DAILY.) metoprolol succinate (TOPROL XL) 50 MG Oral TABLET SR 24 HR TAKE 1 TABLET BY MOUTH EVERY MORNING AND TAKE 1/2 TABLET BY MOUTH EVERY EVENING metoprolol succinate (TOPROL XL) 50 MG Oral TABLET SR 24 HR Take 1 Tab by mouth DIRECTED. 1 tab in am 1/2 tab in pm Rosuvastatin Calcium (CRESTOR) 10 MG Oral Tab Take 1 Tab by mouth DAILY. Take with 20 mg for daily total of 30 mg No current facility-administered medications for this visit. Allergies Allergen Reactions Héctor Inhibitors Unknown Reaction Ibuprofen Other Pt states he had trouble with lips and cheek Keflex Hives Rash on chest at end of 10 day course. Social History Socioeconomic History Marital status: Spouse name: Not on file Number of children: Not on file Years of education: Not on file Highest education level: Not on file Occupational History Not on file Social Needs Financial resource strain: Not on file Food insecurity: Worry: Not on file Inability: Not on file Transportation needs: Medical: Not on file Non-medical: Not on file Tobacco Use Smoking status: Former Smoker Packs/day: 2.00 Years: 20.00 Pack years: 40.00 Types: Cigarettes Last attempt to quit: 03/19/1994 Years since quittin.8 Smokeless tobacco: Never Used Substance and Sexual Activity Alcohol use: Yes Alcohol/week: 14.0 standard drinks Types: 14 Glasses of wine per week Drug use: No Sexual activity: Not on file Lifestyle Physical activity: Days per week: Not on file Minutes per session: Not on file Stress: Not on file Relationships Social connections: Talks on phone: Not on file Gets together: Not on file Attends synagogue service: Not on file Active member of club or organization: Not on file Attends meetings of clubs or organizations: Not on file Relationship status: Not on file Intimate partner violence: Fear of current or ex partner: Not on file Emotionally abused: Not on file Physically abused: Not on file Forced sexual activity: Not on file Other Topics Concern Back Care Not Asked Bike Helmet Not Asked Blood Transfusions Not Asked Caffeine Concern Not Asked Exercise No Hobby Hazards Not Asked International Travel Not Asked Service Not Asked Occupational Exposure Not Asked Seat Belt Not Asked Self-Exams Not Asked Sleep Concern No Special Diet Yes Comment: low fat diet, low carbohydrate Stress Concern Not Asked Weight Concern Yes Comment: goal weight 185 lbs Social History Narrative , 2 grown children. 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 Lives in [facility], Moved from [facility]. REVIEW OF SYSTEMS: A comprehensive review of systems was negative except for as noted in the history of present illness/subjective. OBJECTIVE: BP 134/82 | Pulse 70 | Ht 5' 11" (1.803 m) | Wt 207 lb (93.9 kg) | SpO2 94% | BMI 28.87 kg/m GENERAL: alert, cooperative, combative, appears stated age. NECK: no masses, no cartoid bruit, no jugular venous distention, thyroid nonenlarged. LUNG: clear to auscultation bilaterally, normal percussion bilaterally. HEART: regular rate and rhythm, S1, S2 normal, 3/6 systolic base murmur,no click, rub or gallop. CHEST WALL: no tenderness. ABDOMEN: soft, non-tender. Bowel sounds normal. No masses, no organomegaly. EXTREMITIES: extremities normal, good pulses atraumatic, no cyanosis or edema. CARDIOGRAPHICS: Electrocardiogram: abnormal electrocardiogram, atrial and ventricular paced rhythm unchanged. IMAGING: TTE (09-06-18) Mild concentric LVH with mild left atrial enlargement. Normal LV systolic function with no regional wall motion abnormalities; calculated LVEF 59%. Upper normal right heart size with normal RV contractility. Moderate calcific aortic stenosis (see text). No pericardial effusion. Compared to prior study 12/28/2017, transaortic gradients are similar and calculated WAYNE is slightly lower (1.27cm2 --> 1.1cm2). DVI is also slightly lower. OBSERVATIONS & FINDINGS: Using 2d (3d if applicable), M-mode, Colorflow, Continuous wave doppler and Pulse wave doppler interrogation Left Ventricle Left ventricular cavity size is normal. Left ventricular wall thickness is mildly increased. No evidence of LVOT obstruction. Technically limited examination with suboptimal endocardial definition. Definity contrast was used because at least two contiguous endocardial borders were not well defined. Global systolic function is normal, with a visually estimated ejection fraction of 55-60% and a calculated LVEF of 59%. No regional wall motion abnormalities. Left Atrium The left atrium is mildly enlarged. Indexed LA volume is 39 ml/m2. Mitral Valve Mitral valve leaflets are thickened and calcified with normal mobility. There is moderate mitral annular calcification. There is no mitral valve prolapse and no significant stenosis. There is mild mitral regurgitation. Aortic Valve Aortic valve appears tricuspid with thickened and heavily calcified leaflets withreduced mobility. The mean and peak gradients across the aortic valve are 24 mmHg and 42 mmHg, respectively. Using an LVOT stroke volume of 75mL, the estimated aortic valve area by continuity equation is 1 cm2. Using a Carrasco's stroke volume of 83 mL, the estimated aortic valve area by continuity equation is 1.1 cm2 AVAI= 0.51 cm2. The doppler velocity index is 0.33. Overall, there is severe aortic stenosis. There is trivial aortic regurgitation. Right Ventricle The right ventricle appears upper normal in size with normal contractility. PPM/ICD wires visualized in the right atrium and right ventricle. Right Atrium The right atrium appears upper normal in size. Tricuspid Valve Tricuspid valve appears structurally normal with flexible leaflets. There is trivial tricuspid regurgitation. Pulmonary arterial systolic pressure cannot be accurately estimated from this study. Pulmonic Valve Pulmonic valve appears structurally normal with flexible leaflets. There is no significant pulmonic regurgitation. Pericardium / Pleura No pericardial effusion. Miscellaneous Visualized portions of the aorta are within normal limits. Measurements & Calculations: M-Mode / 2D Measurements Value Normal Value Normal LVIDd: 3.98 cm 3.5-5.5 AO Root: 3.1 cm 2.0-3.7 LVIDs: 2.65 cm 3.0-4.0 LA Dimension: cm 1.9-4.0 IVSd: 1.36 cm 0.7-1.1 LVOT: 2.1 cm 1.5-2.5 LVPWD: 1.35 cm 0.7-1.1 EF Estimated: 59 % 50-70% Doppler Measurements & Calculations: Mitral: Aortic: Area (PHT): 3.49 cm^2 LVOT VTI: 21.6 cm Peak E-Wave: 85.9 cm/s Peak Velocity: 323 cm/s Peak A-Wave: 153 cm/s Peak Gradient: 41.73 mmHg Peak Gradient: 2.95 mmHg AI P1/2t: 880 msec P1/2t: 63 msec Area (continuity): 0.97 cm^2 Mean Velocity: 228 cm/s Area (continuity): 1.93 cm^2 Mean Gradient: 24 mmHg Mean Velocity: 104 cm/s AV VTI: 76.7 cm Mean Gradient: 5 mmHg Deceleration Time: 320 msec E/A Ratio: 0.56 Pulmonic: Peak Velocity: 92.3 cm/s Peak Gradient: 3.41 mmHg Estimated RAP: 3 mmHg LA Dimension: 3.74 cm LA/Aorta: 1.21 LA Volume/Index: 83 ml /39m^2 Diastolic Dimension: 3.98 cm Septum Diastolic: 1.36 cm PW Diastolic: 1.35 cm EF Calculated: 59.29% CO: 5.23 l/min FS: 33.42 % LVOT LVOT Diameter: 2.1 cm Peak Velocity: 106 cm/s Systolic Dimension: 2.65 cm Peak Gradient : 3 mmHg LVOT Diameter: 2.1 cm EF Estimated: 59% Mean Velocity: 73.9 cm/s CI: 2.46 l/min*m^2 Mean Gradient: 2 mmHg LVOT VTI: 21.6 cm LV EDV/LV EDV Index: 140 ml/66 m^2 Aorta LV ESV/LV ESV Index: 57 ml/27 m^2 Aortic Root: 3.1 cm Ascending Aorta: 3.3 cm LVOT Diameter: 2.1 cm Chest x-ray: not indicated. CTA TAVR: 11-14-18 No evidence of atherosclerosis disease or significant stenoses. Tortuous iliac arteries bilaterally. Diffuse vascular calcification. Urgency: Routine. This is a routine medical imaging report. Recommendation: No specific imaging recommendation. AORTA: Sinotubular junction: 25 mm Mid ascending aorta, at the level of the main pulmonary artery: 32 x 31 mm Infrarenal abdominal aorta: 19 x 18 mm ILIOFEMORAL ARTERIES: The iliac arteries are significantly tortuous and moderately calcified. The following minimum and corresponding maximum internal dimensions were obtained on double oblique projections: Rt common iliac artery: 12 mm Rt external iliac artery: 9 mm Rt common femoral artery: 9 mm Lt common iliac artery: 12 mm Lt external iliac artery: 9 mm Lt common femoral artery: 8 mm The acquisition was not optimized for evaluation of the coronary arteries. CT Thorax: Mediastinum and cecille: No significant lymphadenopathy. No mass. Lungs and pleura: Peripheral blebs within the right upper lobe. No focal airspace or interstitial opacity. No nodules or masses. No evidence of pleural or pericardial effusion. CT abdomen and pelvis: Liver: Normal. Biliary system: Small dependent calculi within the gallbladder. Kidneys: No hydronephrosis or masses. Adrenals: Normal Pancreas: Normal Spleen: Normal Mesentery: Normal Retroperitoneum: Normal Stomach: Normal Small bowel: Normal Colon: Diverticulosis without inflammatory change. Appendix: Not visualized Pelvic organs: Prostate calcifications. Free fluid: None CTA (03-14-17) Extensive atherosclerotic arterial calcification. A stent in the innominate artery intraluminal a is present. The branching pattern of the brachiocephalic arteries in the upper mediastinum and lower neck demonstrates atherosclerotic calcification and tortuosity. The stented right innominate artery, proximal right subclavian artery and right common carotid artery are patent to the bifurcation region. The bifurcation region is densely calcified. The origin segment of the right internal carotid artery is narrow, with stenosis which is moderate, greater than 50%, and closer to 70% in maximal stenosis degree. The distal right internal carotid artery is tortuous and patent through the petrous, cavernous and supraclinoid segments. The left common carotid artery is patent to the bifurcation region. The bifurcation is densely calcified obscuring the origin segment of the left internal carotid artery which is narrow to at least moderate degree. The left ICA is patent distally through the petrous, cavernous and supraclinoid segments. The left and right vertebral arteries are codominant. Each artery is patent proximally and distally in the neck through the craniocervical and normal vertebral basilar junction region. CTA HEAD: Right internal carotid artery is patent through the supraclinoid segment and demonstrates a normal branching pattern into right middle cerebral and right anterior cerebral arteries. The left internal carotid artery patent through the supraclinoid segment and demonstrates a normal branching pattern into left middle cerebral and left anterior cerebral arteries. The basilar artery demonstrates a normal branching pattern. The right posterior cerebral artery arises from the supraclinoid carotid artery. A small patent communicating artery with a basilar artery is demonstrated. The left posterior cerebral artery arises from the basilar tip and demonstrates a normal branching pattern intracranially. The visualized cortical and deep cerebral veins and dural sinuses appear normal. 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 Patent stented right innominate artery. At least moderate stenosis up to 70% or greater luminal narrowing of the proximal right internal and left internal carotid arteries associated with calcified plaque is suggested. CTA of the head demonstrates atherosclerotic cavernous internal carotid artery disease without other stenosis or malformation. Procedure(s): CT ANGIO NECK W AND OR WO CON, CT HEAD ANGIOGRAPHY [place] [facility] Date of service: 03/14/2017 10:46 AM Provided clinical information: 76 years, Male, "Carotid stenosis, known or suspected: cartoid stenosis please include great vessels" Procedure and materials: Standard protocol. Contrast: Omnipaque 350 IV Comparison studies: CTA of the neck and head 09/07/2015 Observations: CTA neck: Extensive atherosclerotic arterial calcification. A stent in the innominate artery intraluminal a is present. The branching pattern of the brachiocephalic arteries in the upper mediastinum and lower neck demonstrates atherosclerotic calcification and tortuosity. The stented right innominate artery, proximal right subclavian artery and right common carotid artery are patent to the bifurcation region. The bifurcation region is densely calcified. The origin segment of the right internal carotid artery is narrow, with stenosis which is moderate, greater than 50%, and closer to 70% in maximal stenosis degree. The distal right internal carotid artery is tortuous and patent through the petrous, cavernous and supraclinoid segments. The left common carotid artery is patent to the bifurcation region. The bifurcation is densely calcified obscuring the origin segment of the left internal carotid artery which is narrow to at least moderate degree. The left ICA is patent distally through the petrous, cavernous and supraclinoid segments. The left and right vertebral arteries are codominant. Each artery is patent proximally and distally in the neck through the craniocervical and normal vertebral basilar junction region. CTA HEAD: Right internal carotid artery is patent through the supraclinoid segment and demonstrates a normal branching pattern into right middle cerebral and right anterior cerebral arteries. The left internal carotid artery patent through the supraclinoid segment and demonstrates a normal branching pattern into left middle cerebral and left anterior cerebral arteries. The basilar artery demonstrates a normal branching pattern. The right posterior cerebral artery arises from the supraclinoid carotid artery. A small patent communicating artery with a basilar artery is demonstrated. The left posterior cerebral artery arises from the basilar tip and demonstrates a normal branching pattern intracranially. The visualized cortical and deep cerebral veins and dural sinuses appear normal. 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 Patent stented right innominate artery. At least moderate stenosis up to 70% or greater luminal narrowing of the proximal right internal and left internal carotid arteries associated with calcified plaque is suggested. CTA of the head demonstrates atherosclerotic cavernous internal carotid artery disease without other stenosis or malformation. Arrhythmia note (8-19) There have been no episodes of atrial fibrillation. Heart rates range between 70 -80 bpm the majorityof the time. RV pacing has increased since 02/2017- AV delays are stretched to 350 ms with VIP. Pacemaker function appears normal. (06-27-18) This visit was performed remotely. Atrial and ventricular pacing with capture was seen at the time of this transmission. There have been no episodes of atrial fibrillation. There was a two second episode of ventricular tachycardia in February at a rateof 202 bpm. Heart rates range between 70 - 80 bpm the majority of the time. Pacemaker function appears normal Labs: Lab Results Component Value Date WBC Count 4.72 10/30/2018 Hemoglobin 14.4 10/30/2018 Hematocrit 42.7 10/30/2018 Platelet Count 106 (L) 10/30/2018 , Lab Results Component Value Date Sodium 137 10/30/2018 Potassium 4.8 10/30/2018 Chloride 100 10/30/2018 CO2 28 10/30/2018 Glucose 122 (H) 10/30/2018 BUN 25 (H) 10/30/2018 Creatinine 0.8 10/30/2018 Calcium 9.4 10/30/2018 , No results found for: PTT, No results found for: INR No results found for: TROPONIN No results found for: CHOL, TRIG, HDL, LDL, LDLHDLRATIO, CHOLHDLRATIO Lab Results Component Value Date NT PRO BNP 296 01/11/2019 ASSESSMENT: 1) Severe mildly symptomatic aortic stenosis (WAYNE 1.1, AVAI 0.51 ) we may proceed with TAVR femoral approach (marked tortuosity) 2) Severe CAD s/p CABG patent: MORAES to LAD, VG to OM, VG to Right PLV (The [place] right coronary artery was injected and visualized showing 100% occlusion of the [place] proximal RCA. The saphenous vein graft was then approached and visualized, showing patent graft with an anastomosis site at the first obtuse marginal branch, and adequate distal flow. The 5 [place] JR4 catheter was then exchanged for a 4 [place] a L1 catheter. A sequential SVG to the first right posterior lateral branch was injected and visualized showing adequate anterior and retrograde flow to the right system. There was an 80% lesion at the mid RCA and 80% lesion at the distal RCA noted. The proximal LAD is occluded. The mid to distal LAD has a 50% nonocclusive lesion beyond the MORAES to LAD anastomosis. The left circumflex was noted to have a 100% occlusion proximal to the SVG to first OM anastomosis. 3) S/p Left subclavian PCI S/p Innominate stenting 4) PPM 5) Severe hyperlipidemia treated I explained to Mr. hZen sweeney that he is a little above the average risk for the TAVR procedure in view of marked iliofemoral tortuosity and absence of straightforward alternative axis. In the presence of severe peripheral arterial occlusive disease aortic disease and aortic arch branches disease therisk of embolization during the TAVR procedure is considerable. Patient's N- terminal proBNP has doubled in the last 2 years but is still not extremely high. The patient has mild symptoms and should probably be scheduled for TAVR within the next 2 to 3 months. PLAN: 1) Continue current medications 2) New echo for aortic stenosis 3) Can proceed with TAVR procedure 4) NT-Pro-NBP 5) SPEP 6) Call with any change of health 7) Considerable iliofemoral tortuosity and aortic disease Author: Estrada Agarwal MD 01/11/2019 16:53 documented in this encounter Plan of Treatment Date Type Specialty Care Team Description 02/22/2019 [facility] 04/19/2019 Orders Only Cardiology 04/19/2019 Office Visit Cardiology Estrada Agarwal MD [address] [id number] [phone] 06/28/2019 [facility] Name Type Priority Associated Diagnoses Date/Time PROTEIN ELECTRO, SERUM Lab Routine MGUS (monoclonal 01/11/2019 3:22 PM EDT REFLEX gammopathy of unknown significance) Name Type Priority Associated Diagnoses Order Schedule PROTEIN ELECTRO, SERUM Lab Routine MGUS (monoclonal Expected: 01/11/2019 REFLEX gammopathy of unknown (Approximate), significance) Expires: 01/12/2020 ECHOCARDIOGRAM TTE CV Lab Routine Aortic valve stenosis, Expected: etiology of cardiac 01/11/2019, Expires: valve disease 02/15/2020 unspecified Health Maintenance Due Date Last Done Comments Diabetic Eye Exam 1940 ZOSTER IMMUNIZATION SERIES 07/03/2010 05/08/2010 (2 of 3) INFLUENZA VACCINE (#1) 2018 12/27/2017, 12/27/2016, 11/14/2015, Additional history exists HEMOGLOBIN A1C 02/19/2019 08/20/2018, 04/20/2018, 08/25/2017, Additional history exists URINE MICROALBUMIN 08/21/2019 08/20/2018, 05/17/2017, 09/08/2016, Additional history exists DEPRESSION SCREENING 08/24/2019 08/23/2018 FALL RISK ASSESSMENT 08/24/2019 08/23/2018, 08/23/2018 FOOT EXAM 08/24/2019 08/23/2018, 08/23/2018, 08/23/2018, Additional history exists PNEUMOCOCCAL 65+YRS Completed 02/26/2015, 07/19/2012 HPV IMMUNIZATION SERIES Aged Out No longer eligible based on patient's age to complete this topic MENINGOCOCCAL VACCINE IMM Aged Out No longer eligible based on patient's age to complete this topic documented as of this encounter Goals Goal Patient Goal Associated Recent Patient-Stated? Author Type Problems Progress Glycohemoglobin A1c Diabetes 6.3 No Norman, < 7.0 (08/20/2018 Hany, 11:56 AM EDT) Note: This is an individualized treatment (diabetes control, HgbA1C) goal for Hung Chao: Displayed above is your progress towards your HgbA1C goal. Your goal is shown above (on the left); your most recent HgbA1C is shown on the right. Note that lower numbers are better. Keep immunizations current Lifestyle No Hany Austin MD Note: This is an individualized lifestyle goal for Hung Robertneptali: Please be sure to keep up-to-date on recommended immunizations. For example, this would include a yearly influenza vaccine. Immunization status can be seen by looking at the Health Maintenance sections of your e[facility], Plan of Care, and any After Visit Summaries. Take all prescribed medications as Self-management No Hany Austin MD directed Note: This is an individualized self-management goal for Hung Chao: Please take all prescribed medications as directed. 1. Do not skip doses. If you cannot afford your medications, talk with your doctor. 2. Use a pill reminder system such as a pill box if needed. Your pharmacist can help you with this. 3. Contact your Pharmacy 5 days before your medication runs out. If you cannot take your medications for any reasons, talk with your doctor. 4. Please bring all of your medication bottles and inhalers (or a list of all your medications/inhalers) with you to every visit. Potential barriers to meeting all of your care plan goals will continue to be addressed on an ongoing basis. documented as of this encounter Implants Implanted Type Area [employer] Device Shelf Model / Identifier Expiration Serial / Date Lot [id number] Assurity -Rf - [id number] Left: [employer], 02/09/2017 [id number] / Implanted: Qty: 1 on 11/13/2015 by Jovany Kendrick MD at [facility]. [id number] / Optisense Lead - [id number] Left: [employer], 06/10/2018 / Implanted: Qty: 1 on 11/13/2015 by Jovany Kendrick MD at [facility]. [id number] / Tendril Lead 8tc/58cm - [id number] Left: [employer], 07/10/2018 [id number] / Implanted: Qty: 1 on 11/13/2015 by Jovany Kendrick MD at [facility]. [id number] / documented as of this encounter Results NT PROBNP (01/11/2019 3:22 PM EDT) NT PRO BNP 296 <450 pg/ml [facility] Comment: [facility] Recommended cut points for the diagnostic evaluation of heart failure patients with acute dyspnea* Ages (years) Optimal [place] (pg/ml) <50 450 50-75 900 >75 1800 *The [place] Journal of Cardiology NTproBNP results should be interpreted in the context of the overall picture. Serum concentrations of natriuretic peptides may be elevated in patients with acute myocardial infarction and renal insuffic iency. Certain drugs may alter results. Heterophilic antibodies are known to cause interference with immunoassays. Results which are inconsistent with clinical observation indicate a need for additional testing. NTproBNP testing performed on [employer]. Results will not correlate with other methodologies. Specimen Blood - Blood specimen (specimen) Performing Organization Address City/State/Zipcode Phone Number [facility] [address] [address] [phone] documented in this encounter Visit Diagnoses Diagnosis Aortic valve stenosis, etiology of cardiac valve disease unspecified - Primary Nonrheumatic aortic valve stenosis Aortic valve disorders Ischemic cardiomyopathy Other specified forms of chronic ischemic heart disease S/P CABG (coronary artery bypass graft) Postsurgical aortocoronary bypass status S/P coronary artery stent placement Postsurgical percutaneous transluminal coronary angioplasty status Chronic stable angina (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 Yes Order was discussed with: Patient I discussed all options and patient/surrogate requested and agreed to: Full Code
--- NOTE | 2019-01-24 11:00 | UC ---
Bite Injury/Animal HPI - HPI Summary HPI Summary: CHIEF COMPLAINT and HPI: This is a 78-year-old white male who comes to the urgent care center because he is significantly concerned about a tick bite on his right hip. This is important because he is scheduled to have a TAVR for aortic stenosis in approximately 6 weeks. He was initially given one week of doxycycline and is requesting 2 more weeks. He is also requesting testing. I explained that the test would not be positive yet. The area of concern is his right hip. There is a bite site. This is nonpainful, although it does itch sometimes. VITAL SIGNS & SaO2 REVIEWED. Within normal limits unless noted here. 158/82 NURSES NOTE REVIEWED. "pt about to have a heart valve replacement. pt had a tick bite, he found a red swelling on his right hip, pulled out the tick. thinks it could have been there for 3 days. pt has been taking augmentin, now it has a streak. he went to well now, got doxycycline for 7 days, he tried following up with his doctor but didn't get a response. afebrile, no body aches or pains. " - History of Current Complaint Stated Complaint: TICK BITE Time Seen by Provider: 01/24/19 10:57 - Allergies/Home Medications Allergies/Adverse Reactions: Allergies Allergy/AdvReac Type Severity Reaction Status Date / Time cephalexin [From Keflex] Allergy Rash Verified 01/24/19 11:11 ibuprofen Allergy Swelling Verified 01/24/19 11:11 Home Medications: Home Medications Antihistimine Med 1 tab PO DAILY PRN 01/24/19 [History Confirmed 01/24/19] DOXYcycline CAP(*) [DOXYcycline 100MG CAP(*)] 1 tab PO BID 01/24/19 [History Confirmed 01/24/19] PMH/Surg Hx/FS Hx/Imm Hx - Additional Past Medical History Additional PMH: PAST MEDICAL HISTORY- Aortic stenosis CHRONIC and RECURRENT HEALTH PROBLEM LIST REVIEWED. Information relevant to present complaint: , previous tick bite with 3 week history of doxycycline for years ago. VISIT HISTORY REVIEWED. MEDICATIONS & ALLERGIES REVIEWED. HYPERTENSION STATUS: FAMILY HISTORY: negative SOCIAL HISTORY: non-smoker,retired chemistry tutor. - Surgical History Surgical History: Yes Surgery Procedure, Year, and Place: CABG 2008 - Family History Known Family History: Positive: Cardiac Disease - from father side Negative: Diabetes - Social History Alcohol Use: Daily Alcohol Amount: X2 Substance Use Type: None Smoking Status (MU): Never Smoked Tobacco - Immunization History Most Recent Influenza Vaccination: 2018 Most Recent Tetanus Shot: unknown Most Recent Pneumonia Vaccination: in the past Review of Systems All Other Systems Reviewed And Are Negative: Yes Respiratory: Positive: Negative Cardiovascular: Positive: Negative Gastrointestinal: Positive: Negative Is Patient Immunocompromised?: No Physical Exam - Summary Physical Exam Summary: Appearance: The patient is well-appearing, is in no pain or distress, and is well-nourished. Eyes: Conjunctiva are clear. Pupils are equal and reactive to light and accommodation. Extra ocular muscle movement is intact. ENT: The hearing is grossly normal, the pharynx is normal, and the TMs are normal. There is no muffled or hoarse voice. No stridor. Neck: The neck is supple and there is no lymphadenopathy. Respiratory: The chest is non-tender to palpation and without crepitus. The lungs are clear, there are normal breath sounds, and there is no respiratory distress. No wheezes, rales or rhonchi. Cardiovascular: Heart sounds reveal a regular rate and rhythm. There are no clicks, rubs or murmurs. There are no carotid bruits or thrills. Circulation is grossly intact. Abdomen: The abdomen is soft and nontender. There is no organomegaly. Bowel sounds are present and within normal limits. No point tenderness at McBurneys point. No CVA tenderness. Musculoskeletal: Strength is intact. The patient moves all extremities. Neurological: The patient is alert. Motor and sensory are examination grossly intact. Speech is normal. Psychological: The patient displays age appropriate behavior, and is conversant. GCS=15. Skin: on the patient's right hip is a 1 cm bite site. There is a tiny black dot in the middle which may be a residual tick head. However, although the site is mildly swollen, there is no erythema or cellulitis or lymphangitis. There is no erythema migrans. Triage Information Reviewed: Yes Bite Injury Course/Dx - Course Course Of Treatment: The patient presents with a tick bite on the right hip. The tick apparently has been present for more than 36 hours. The patient has no history of Lyme disease. I explained to the patient the need to wait approximately 3 weeks before Lyme testing would be accurate. I explained to the patient the need to watch for any rash or signs consistent with skin infection. The patient will clean the bite site morning and night with warm water and soap and place antibiotic ointment on it. I have given the patient 200 mg of doxycycline for Lyme treatment for 2 weeks. Patient knows to follow up immediately for new symptoms or fever. I have given the patient information about Lyme disease. the patient and I discussed this treatment extensively and he was particular concern because he is scheduled for an aortic valve replacement in the next 4-6 weeks. My diagnosis is tick bite, possible risk of Lyme disease. - Differential Dx/Diagnosis Differential Diagnosis/HQI/PQRI: Cellulitis Provider Diagnosis: Tick bite Discharge ED - Sign-Out/Discharge Documenting (check all that apply): Patient Departure All imaging exams completed and their final reports reviewed: No Studies - Discharge Plan Condition: Stable Disposition: HOME Prescriptions: DOXYcycline CAP(*) [DOXYcycline 100MG CAP(*)] 100 mg PO BID #28 cap MDD 2 Patient Education Materials: Lyme Disease (ED), Tick Bite (ED) Referrals: Norman WHITE,Hany Kinney [Primary Care Provider] - Additional Instructions: WE DISCUSSED: you may have been bitten by deer tick in the deer tick was present for more than 36 hours. Your skin bite site does not look infected at this time. However, since you are scheduled for heart surgery in the relatively near future, we have decided to give you 2 more weeks of doxycycline , 100 mg twice a day. Watch for any worsening skin infection including redness , swelling, pain or fever. PLEASE SEEK CARE AT THE EMERGENCY DEPARTMENT IF SYMPTOMS WORSEN OR IF NEW SYMPTOMS DEVELOP. FOLLOW UP WITH YOUR PRIMARY CARE PHYSICIAN IF CONDITION CONTINUES BEYOND 3 DAYS WITHOUT IMPROVEMENT. YOUR DIAGNOSIS IS: tick bite; you have been given 200mg of the antibiotic doxycycline a day for 14 days. YOUR PRESCRIPTION RECOMMENDATION IS: none. OTHER INSTRUCTIONS: warm soaks to bite site; clean morning and night; use antibiotic cream or ointment and a bandaid. WATCH FOR ANY INCREASING REDNESS OR SPREADING RASH. Hypertension Discharge Instructions: Your blood pressure reading today was 158/82. It should be about 120/80, so recheck intermittently to check the number. FOR PAIN AND/OR SLEEP: For pain: acetaminophen (Tylenol and other brand names) 500mg - 1000mg every 8 hours. - Billing Disposition and Condition Condition: STABLE Disposition: Home
[2019-01-24 11:09] VITALS: BP 158/82
== END 2019-01-24 11:50 | disposition home or self-care (01) ==
LOC: UCEAST 10:32
DX: S70.261A Insect bite (nonvenomous), right hip, initial encounter (principal); Z88.1 Allergy status to other antibiotic agents; Z88.8 Allergy status to other drugs, medicaments and biological substances; W57.XXXA Bitten or stung by nonvenomous insect and other nonvenomous arthropods, initial encounter; Y92.9 Unspecified place or not applicable
CPT/HCPCS: 99212; G0463

== ENCOUNTER 2024-03-16 10:12 | Observation (INO) ==
[2024-03-16 10:43] LABS: ABS Eosinophils 0.2 10^3/uL (0.0-0.5); ABS Lymphocytes 1.3 10^3/uL (1.0-4.8); ABS Monocytes 0.4 10^3/uL (0.0-1.1); ABS Neutrophils 2.8 10^3/uL (1.5-7.6); ABS Nucleated RBC 0.01 10^3/ul; Eosinophil % 3.2 %; Hematocrit 38.5 % (38-53); Hemoglobin 13.1 g/dL (13.2-16.3); Lymphocyte % 27.9 %; Mean Corpuscular Hemoglobin 31.8 pg (27-33); Mean Corpuscular Volume 93.5 fL (80-97); Mean Platelet Volume 8.4 fL (7.5-11.2); Nucleated Red Blood Cells % 0.2 %/100WBC (0.0-0.8); Platelet Count 112 10^3/uL (150-450); Red Blood Count 4.11 10^6/uL (4.06-5.63); White Blood Count 4.7 10^3/uL (3.6-10.2)
[2024-03-16 11:15] LABS: INR 1.04 (0.85-1.14)
[2024-03-16] MEDS: Iodixanol 320 (CONTRAST) 100 ML SDV IV ONE (11:15)
[2024-03-16] MEDS: Lactated Ringers 1000 ml BAG 1,000 ML IV ONE (11:17)
[2024-03-16 11:23] LABS: Albumin 4.2 g/dL (3.5-5.7); Albumin/Globulin Ratio 1.6 (1-3); Calcium 10.3 mg/dL (8.6-10.3); Creatinine, Serum 1.12 mg/dL (0.67-1.17); Globulin 2.7 g/dL (2-4); Potassium 4.6 mmol/L (3.5-5.0); Total Bilirubin 1.1 mg/dL (0.2-1.0); Total Protein 6.9 g/dL (6.4-8.9); eGFR CKD-EPI 64.8 (>60)
[2024-03-16 12:12] LABS: High Sensitivity Troponin 1 Hr 13 pg/mL (<20)
[2024-03-16 12:22] LABS: Urine Appearance Turbid; Urine Bilirubin Negative (Negative); Urine Blood Negative (Negative); Urine Color Light-Yellow; Urine Glucose Negative (Negative); Urine Ketones Negative (Negative); Urine Nitrite Negative (Negative); Urine Protein Trace (Negative); Urine Specific Gravity 1.018 (1.002-1.030); Urine Urobilinogen Negative (Negative)
[2024-03-16 12:26] LABS: Urine Amorphous Crystals Present /HPF (Absent); Urine Bacteria Absent /HPF (Absent); Urine Red Blood Cell 2+(6-10/hpf) /HPF (0-Trace); Urine White Blood Cell 3+(>20/hpf) /HPF (0-Trace)
[2024-03-16] MEDS: Cefepime 2 GM in Dextrose 2 GM/50 ML BAG IV ONE (13:40)
[2024-03-16] MEDS ORDERED: Senna TAB 8.6 mg TAB PO PRN (15:59)
[2024-03-16] MEDS: Enoxaparin 40 MG/0.4 ML SYR SUBCUT SCH (18:25)
[2024-03-16] MEDS: cefTRIAXone 1 gm/50 mL D5W 1 GM/50 ML BAG IV SCH (22:21)
[2024-03-17 10:00] LABS: ABS Eosinophils 0.2 10^3/uL (0.0-0.5); ABS Lymphocytes 1.2 10^3/uL (1.0-4.8); ABS Monocytes 0.3 10^3/uL (0.0-1.1); Eosinophil % 4.1 %; Hematocrit 37.4 % (38-53); Hemoglobin 12.8 g/dL (13.2-16.3); Lymphocyte % 24.8 %; Mean Corpuscular Hgb Conc 34.2 g/dL (31-36); Mean Corpuscular Volume 93.5 fL (80-97); Mean Platelet Volume 8.5 fL (7.5-11.2); Nucleated Red Blood Cells % 0.1 %/100WBC (0.0-0.8); Platelet Count 102 10^3/uL (150-450); Red Cell Distribution Width 13.8 % (12-17); White Blood Count 4.7 10^3/uL (3.6-10.2)
[2024-03-17 10:16] LABS: Anion Gap 10 mmol/L (2-16); Blood Urea Nitrogen 23 mg/dL (6-24); CO2 Carbon Dioxide 25 mmol/L (22-32); Calcium 9.8 mg/dL (8.6-10.3); Chloride 104 mmol/L (101-111); Creatinine, Serum 1.06 mg/dL (0.67-1.17); Glucose 134 mg/dL (70-100); Magnesium 1.8 mg/dL (1.9-2.7); Potassium 4.1 mmol/L (3.5-5.0); Sodium 139 mmol/L (135-145); eGFR CKD-EPI 69.2 (>60)
[2024-03-17 10:57] LABS: TSH Ultra Thyroid Stim Horm 1.27 mcIU/mL (0.34-5.60)
[2024-03-17 11:08] LABS: Folate > 20.00 ng/mL (5.90-24.80)
[2024-03-17 11:09] LABS: Vitamin B12 316 pg/mL (180-914)
[2024-03-17] MEDS: Cyanocobalamin INJ 1,000 MCG/ML VIAL 1 ML VIAL IM SCH (13:43)
[2024-03-17] MEDS: Thiamine 100 MG/ML 2 ml VIAL 500 MG in NS 0.9% 250 ml 250 ML IV ONE (16:27)
[2024-03-17] MEDS: Magnesium Sulfate IV 1GM/100ML 1 GM/100 ML BAG IV ONE (18:06)
[2024-03-18 08:59] LABS: ABS Eosinophils 0.3 10^3/uL (0.0-0.5); ABS Lymphocytes 1.2 10^3/uL (1.0-4.8); ABS Monocytes 0.4 10^3/uL (0.0-1.1); ABS Neutrophils 2.8 10^3/uL (1.5-7.6); ABS Nucleated RBC 0.01 10^3/ul; Eosinophil % 6.6 %; Hematocrit 39.9 % (38-53); Hemoglobin 13.7 g/dL (13.2-16.3); Lymphocyte % 24.4 %; Mean Corpuscular Hgb Conc 34.2 g/dL (31-36); Mean Corpuscular Volume 93.6 fL (80-97); Mean Platelet Volume 8.4 fL (7.5-11.2); Nucleated Red Blood Cells % 0.1 %/100WBC (0.0-0.8); Platelet Count 115 10^3/uL (150-450); Red Blood Count 4.26 10^6/uL (4.06-5.63); Red Cell Distribution Width 13.6 % (12-17); White Blood Count 4.8 10^3/uL (3.6-10.2)
[2024-03-18 09:31] LABS: Albumin 4.1 g/dL (3.5-5.7); Albumin/Globulin Ratio 1.6 (1-3); Calcium 9.9 mg/dL (8.6-10.3); Creatinine, Serum 1.14 mg/dL (0.67-1.17); Globulin 2.6 g/dL (2-4); Potassium 4.2 mmol/L (3.5-5.0); Total Bilirubin 0.9 mg/dL (0.2-1.0); Total Protein 6.7 g/dL (6.4-8.9); eGFR CKD-EPI 63.4 (>60)
[2024-03-18 10:34] VITALS: BP 122/67
== END 2024-03-18 12:51 | disposition home or self-care (01) ==
LOC: ED 10:12 → EDHOLD 10:12 → SUATTDRO 15:59 → MED 19:49
PROVIDERS: ADMIT Hospitalist; ATTEND Internal Medicine